=== PATIENT | female | born 1985 | race Caucasian/White ===

== ENCOUNTER 2017-12-31 16:27 | Observation (INO) | payer OTHER ==
[~2017-12-31] VITALS: Ht 162.6 cm; Wt 112.9 kg
== END 2017-12-31 20:30 | disposition home or self-care (01) ==
LOC: MLD 16:27
PROVIDERS: ADMIT Obstetrics & Gynecology; ATTEND Obstetrics & Gynecology
DX: O36.8130 Decreased fetal movements, third trimester, not applicable or unspecified (principal); Z3A.35 35 weeks gestation of pregnancy
CPT/HCPCS: 76805; 81000; G0378; Q0092

== ENCOUNTER 2018-01-23 14:56 | Observation (INO) | payer OTHER ==
[2018-01-23 16:05] VITALS: BP 132/76
== END 2018-01-23 17:25 | disposition home or self-care (01) ==
LOC: MLD 14:56
PROVIDERS: ADMIT Obstetrics & Gynecology; ATTEND Obstetrics & Gynecology
DX: O62.9 Abnormality of forces of labor, unspecified (principal); Z3A.38 38 weeks gestation of pregnancy
CPT/HCPCS: 76805; G0378; Q0092

== ENCOUNTER 2018-01-30 08:57 | Inpatient (IN) | payer OTHER ==
[~2018-01-30] VITALS: Ht 177.8 cm; Wt 114.3 kg
[2018-01-30] MEDS ORDERED: METHYLERGONOVINE 0.2 MG/ML AMP IM PRN (10:00)
[2018-01-30] MEDS ORDERED: OXYTOCIN 10 UNITS/ML VIAL IM SCH (10:00)
[2018-01-30] MEDS ORDERED: PROMETHAZINE 25 MG/ML VIAL IVP PRN (10:00)
[2018-01-30] MEDS ORDERED: VITA1TAB44 PO (10:00)
[2018-01-30] MEDS ORDERED: NALBUPHINE HYDROCHLORIDE 10 MG/ML VIAL IVP PRN (10:00)
[2018-01-30] MEDS ORDERED: LACTATED RINGERS 1,000 ML IV SCH (10:00)
[2018-01-30] MEDS ORDERED: OXYTOCIN 20 UNITS in LACTATED RINGERS 1,000 ML IV SCH ×2 (10:00→18:12)
[2018-01-30] MEDS ORDERED: CARBOPROST 250 MCG/ML AMP IM PRN (10:00)
[2018-01-30] MEDS ORDERED: PREN-380 PO (10:00)
[2018-01-30] MEDS ORDERED: BUPIVACAINE 0.125%/NS PREMIX 250 ML EPI SCH (10:40)
[2018-01-30] MEDS ORDERED: BUPIVACAINE 0.125%/NS PREMIX 250 ML ONE (10:42)
[2018-01-30] MEDS ORDERED: NALBUPHINE 10 MG/ML AMP IVP PRN (10:55)
[2018-01-30 11:44] LABS: BASOPHILS # (AUTO) 0.1 K/uL (0.00-0.22); BASOPHILS % (AUTO) 0.6 % (0.0-2.0); EOSINOPHILS % (AUTO) 0.4 % (0.0-4.0); HEMATOCRIT 36.3 % (36-48); HEMOGLOBIN 11.7 g/dL (12.0-16.0); MEAN CORPUSCULAR HEMOGLOBIN 26 pg (27-31); MEAN CORPUSCULAR HGB CONC 32 g/dL (33-37); MEAN CORPUSCULAR VOLUME 80.4 fL (80-94); MONOCYTES # (AUTO) 0.6 K/uL (0.8-1.0); MONOCYTES % (AUTO) 6.5 % (1.7-9.3); NEUTROPHILS # (AUTO) 5.8 K/uL (1.8-7.7); NEUTROPHILS % (AUTO) 69.5 % (42.2-75.2); PLATELET COUNT (AUTO) 206 K/uL (140-450); RED BLOOD CELL COUNT(AUTO) 4.52 MIL/uL (4.20-5.40); WHITE BLOOD COUNT (AUTO) 8.5 K/uL (4.8-10.8)
[2018-01-30 12:05] LABS: ALBUMIN 2.5 g/dL (3.4-5.0); ANION GAP 13.9 (8-16); CARBON DIOXIDE 24.1 mmol/L (21-32); CREATININE 0.5 mg/dL (0.6-1.3); TOTAL BILIRUBIN 0.3 mg/dL (0.0-1.0)
[2018-01-30] MEDS ORDERED: LIDOCAINE 2% 1000 MG/50 ML VIAL INJ ONE (12:26)
[2018-01-30 12:58] LABS: APPEARANCE,URINE CLEAR (CLEAR); BILIRUBIN,URINE NEGATIVE (NEGATIVE); BLOOD, URINE TRACE-L (NEGATIVE); COLOR,URINE YELLOW (YELLOW); LEUKOCYTE ESTERASE ,URINE 1+ (NEGATIVE); NITRITE, URINE NEGATIVE (NEGATIVE); UGLUCOSE NEGATIVE (NEGATIVE)
[2018-01-30 14:36] LABS: RBC,URINE NONE SEEN /HPF (0-5); WBC,URINE 0-5 (RARE) /HPF (0-5)
[2018-01-30] MEDS ORDERED: OXYTOCIN 10 UNITS/ML VIAL ONE (16:03)
[2018-01-30] MEDS ORDERED: ACETAMINOPHEN 325 MG TAB PO PRN (18:15)
[2018-01-30] MEDS ORDERED: oxyCODONE/APAP 5/325 MG 1 TAB TAB PO PRN (18:15)
[2018-01-30] MEDS ORDERED: IBUPROFEN 600 MG TAB PO PRN (18:15)
[2018-01-30] MEDS ORDERED: MEASLES, MUMPS, AND RUBELLA 1 VIAL SQVAC PRN (18:15)
[2018-01-31 06:42] LABS: BASOPHILS # (AUTO) 0.1 K/uL (0.00-0.22); BASOPHILS % (AUTO) 0.4 % (0.0-2.0); EOSINOPHILS # (AUTO) 0.1 K/uL (0-0.4); EOSINOPHILS % (AUTO) 0.4 % (0.0-4.0); HEMATOCRIT 34.5 % (36-48); LYMPHOCYTES # (AUTO) 3.1 K/uL (2.5-16.5); LYMPHOCYTES % (AUTO) 22.8 % (20.5-51.1); MEAN CORPUSCULAR HEMOGLOBIN 26 pg (27-31); MEAN CORPUSCULAR HGB CONC 32 g/dL (33-37); MEAN CORPUSCULAR VOLUME 80.1 fL (80-94); MONOCYTES % (AUTO) 7.5 % (1.7-9.3); NEUTROPHILS # (AUTO) 9.4 K/uL (1.8-7.7); NEUTROPHILS % (AUTO) 68.9 % (42.2-75.2); PLATELET COUNT (AUTO) 204 K/uL (140-450); RED CELL DISTRIBUTION WIDTH 15.3 % (11.6-13.7); WHITE BLOOD COUNT (AUTO) 13.6 K/uL (4.8-10.8)
--- NOTE | 2018-01-31 08:00 | NUR ---
PATIENT HAS BEEN SCREENED AND CATEGORIZED LOW RISK. PATIENT WILL BE SEEN WITHIN 7 DAYS OF ADMISSION. 02/06/[address], [facility]
[2018-01-31] MEDS ORDERED: BISACODYL 5 MG TABEC PO PRN (14:50)
[2018-02-01] MEDS ORDERED: FERR325E14 PO (16:36)
[2018-02-01] MEDS ORDERED: ACET-9800 PO (16:38)
== END 2018-02-01 17:05 | disposition home or self-care (01) | DRG 560 ==
LOC: MLD 08:57 → MFCC 21:30
PROVIDERS: ADMIT Obstetrics & Gynecology; ATTEND Obstetrics & Gynecology
PROC: 10E0XZZ Delivery of Products of Conception, External Approach (ICD-10-PCS; principal; 2018-01-30)
PROC: 10907ZC Drainage of Amniotic Fluid, Therapeutic from Products of Conception, Via Natural or Artificial Opening (ICD-10-PCS; 2018-01-30)
PROC: 3E0R3BZ Introduction of Anesthetic Agent into Spinal Canal, Percutaneous Approach (ICD-10-PCS; 2018-01-30)
PROC: 00HU33Z Insertion of Infusion Device into Spinal Canal, Percutaneous Approach (ICD-10-PCS; 2018-01-30)
PROC: 3E0234Z Introduction of Serum, Toxoid and Vaccine into Muscle, Percutaneous Approach (ICD-10-PCS; 2018-01-30)
DX: O16.4 Unspecified maternal hypertension, complicating childbirth (principal); E66.9 Obesity, unspecified; O62.2 Other uterine inertia; Z37.0 Single live birth; Z3A.39 39 weeks gestation of pregnancy; Z83.3 Family history of diabetes mellitus; Z82.49 Family history of ischemic heart disease and other diseases of the circulatory system; Z80.9 Family history of malignant neoplasm, unspecified; Z23 Encounter for immunization; Z68.36 Body mass index [BMI] 36.0-36.9, adult
CPT/HCPCS: 36415; 51702; 59409; 80053; 81001; 85025; 86592; 86886; 86900; 86901; 87086; 90715; J2001; J2590; J3490; J7120